=== PATIENT | female | born 1950 | race African-American/Black ===

== ENCOUNTER → 2017-01-30 07:25 | Day surgery (SDC) | payer OTHER ==
[~2017-01-30 07:25] MED LIST: Acetaminophen TAB* 325 MG PO PRN; Buffered Lidocaine 0.9% SYRIN* 5 ML/SYR SYRINGE INTRADERM ONE; Buffered Lidocaine 0.9% SYRIN* 5 ML/SYR SYRINGE ONE; HYDROmorphone INJ* 2 MG/ML CARPUJECT SYRINGE IV PRN; Ibuprofen TAB* 400 MG ONE; Ibuprofen TAB* 400 MG PO PRN; Lidocaine 4% TOPICAL* 50 ML TOP.SOLN ONE; Metoclopramide IV* 5 MG/ML 2 ML VIAL IV PRN; Midazolam* 1 MG/ML 2 ML VIAL (2 MG) ONE; Oxymetazoline 0.05% NASAL SPR* 15 ML BTL ONE; fentaNYL* 50 MCG/ML 2 ML VIAL (100 MCG VIAL) ONE
[2017-01-30 11:47] VITALS: BP 125/65
--- NOTE | 2017-01-31 00:28 | OP ---
OPERATIVE REPORT: DATE OF OPERATION: 01/30/17 - SDS DATE OF : 54 SURGEON: Bryan Christiansen MD. ANESTHESIOLOGIST: Yumiko Otero MD. ANESTHESIA: General. PRE-OP DIAGNOSIS: Hemoptysis, which appeared to be coming somewhere from the oropharynx to hypopharynx and a pocket where the ulceration was found in the left hypopharynx. POST-OP DIAGNOSIS: Hemoptysis, which appeared to be coming somewhere from the oropharynx to hypopharynx and a pocket where the ulceration was found in the left hypopharynx. OPERATIVE PROCEDURE: Microlaryngoscopy under general endotracheal anesthesia. COMPLICATIONS: None. DISPOSITION: Good. SPECIMEN: Left hypopharyngeal biopsies from a pocket. DESCRIPTION OF PROCEDURE: The patient was taken to the operating room, placed in a supine position on the operating room table, general anesthesia was induced and she was orotracheally intubated, turned and draped for the surgery. Teeth guard was placed on the upper teeth and laryngoscope was inserted. I did a ash endoscopy of her overall cavity, oropharynx, hypopharynx, and larynx and it was in the base of the left tonsil in the hypopharyngeal area just at the piriform sinus on the lateral wall where she had this pocket filled with debris that when suctioned was very friable at the base, possibly ulcerated. I took multiple biopsies deep within this and put them in formalin for identification and cottonoids impregnated with oxymetazoline and 4% lidocaine was placed. The laryngoscope and teeth guard was released and removed. The patient tolerated this well, no complications, and transferred to the recovery room in stable condition. [id number] #: [id number] MTDD
== END | disposition home or self-care (01) ==
LOC: OR 07:25
PROVIDERS: ATTEND Otolaryngology
DX: J03.90 Acute tonsillitis, unspecified (principal); J35.01 Chronic tonsillitis; Z87.891 Personal history of nicotine dependence
CPT/HCPCS: 88305; A9270-GY; J2250; J3010